=== PATIENT | female | born 1935 ===

== ENCOUNTER 2017-06-09 14:08 | Inpatient (IN) | payer MEDICARE, MEDICAID ==
[2017-06-09] MEDS ORDERED: Sodium Chloride 0.9% 1,000 ML IV STA ×2 (14:31→17:29)
--- NOTE | 2017-06-09 14:37 | C.PDOC ---
History Of Present Illness 81-year-old female, presents to the emergency department accompanied by son with complaints of shaking, that started last night. Son reports increased anxiety, states patient gets anxious easily, but is not diagnosed. Patient denies pain, current shortness of breath, cough, abdominal pain, vomiting, diarrhea, constipation, dysuria, or any other associated symptoms. No other complaints at this time. Time Seen by Provider: 06/09/17 14:10 Chief Complaint (Nursing): Anxiety History Per: Patient History/Exam Limitations: no limitations Onset/Duration Of Symptoms: Days Past Medical History Reviewed: Historical Data, Nursing Documentation, Vital Signs Vital Signs: Last Vital Signs Temp 98.8 F 06/09/17 17:41 Pulse 76 06/09/17 17:41 Resp 18 06/09/17 17:41 BP 105/49 L 06/09/17 17:41 Pulse Ox 97 06/09/17 17:41 - Medical History PMH: Anxiety, Hyperlipidemia Surgical History: Cholecystectomy Family History: States: No Known Family Hx - Social History Hx Alcohol Use: No Hx Substance Use: No - Immunization History Hx Tetanus Toxoid Vaccination: No Hx Influenza Vaccination: No Hx Pneumococcal Vaccination: No Review Of Systems Except As Marked, All Systems Reviewed And Found Negative. Constitutional: Positive for: Chills (shaking.). Negative for: Fever Cardiovascular: Negative for: Chest Pain Respiratory: Negative for: Shortness of Breath Musculoskeletal: Negative for: Back Pain Neurological: Negative for: Headache Physical Exam - Physical Exam Additional Physical Exam Comments: Constitutional: No acute distress. Head: Normocephalic. Atraumatic. Eyes: PERRL. ENT: Moist mucous membranes. Neck: Supple. Cardiovascular: Regular rate. Radial pulses 2+ bilaterally. Tachycardic Chest: No tenderness. Respiratory: Clear to auscultation bilaterally. GI: Soft. Nontender. Nondistended. Back: No CVA tenderness. Musculoskeletal: No tenderness or swelling of extremities. Skin: No rashes. Warm to touch. Neurologic: Alert, no focal deficit. ED Course And Treatment - Laboratory Results Result Diagrams: 06/09/17 14:38 06/09/17 14:38 ECG: Interpreted By Me, Viewed By Me ECG Rhythm: Atrial Fibrillation, R BBB ECG Interpretation: No Acute Changes Rate From EC O2 Sat by Pulse Oximetry: 91 Medical Decision Making Medical Decision Making: Patients vital signs are consistent with sepsis. Will administer Acetaminophen, IVF bolus, and evaluate for source of infection. Started on heparin for new onset atrial fibrillation. Dr. Burgess consulted for cardiology. Cefepime initiated for UTI sepsis. Dr. Lozano consulted for ID. CXR no acute disease. Vital signs much improved. 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 Disposition Discussed With Dr.: Luis Mohan Doctor Will See Patient In The: Hospital - Disposition Disposition: HOSPITALIZED Disposition Time: 17:30 Condition: GUARDED - POA Core Measure Indicators: Code Sepsis - Clinical Impression Clinical Impression: UTI (urinary tract infection), Sepsis, New onset atrial fibrillation - Scribe Statement The provider has reviewed the documentation as recorded by the Scribe (Arlen Pickett) All medical record entries made by the Scribe were at my direction and personally dictated by me. I have reviewed the chart and agree that the record accurately reflects my personal performance of the history, physical exam, medical decision making, and the department course for this patient. I have also personally directed, reviewed, and agree with the discharge instructions and disposition.
[2017-06-09] MEDS ORDERED: Sodium Chloride 0.9% 1,000 ML ONE (14:38)
[2017-06-09 14:41] LABS: BASO % 0.2 % (0.0-2.0); HEMATOCRIT 43.3 % (34.0-47.0); LYMPH # 0.6 K/uL (1.0-4.3); LYMPH % 7.1 % (20.0-40.0); MEAN CELL VOLUME 86.8 fL (81.0-99.0); MEAN CORPUSCULAR HEMOGLOBIN 29.6 pg (27.0-31.0); MEAN CORPUSCULAR HGB CONC 34.1 g/dL (33.0-37.0); MEAN PLATELET VOLUME 9.5 fL (7.2-11.7); MONO # 0.1 K/uL (0.0-0.8); MONO % 1.4 % (0.0-10.0); RED CELL DISTRIBUTION WIDTH 13.5 % (11.5-14.5); WHITE BLOOD COUNT 8.5 K/uL (4.8-10.8)
[2017-06-09 14:43] LABS: VENOUS BLOOD GAS BASE EXCESS -0.3 mmol/L (0.0-2.0); VENOUS BLOOD GAS PCO2 32 mmHg (40-60); VENOUS BLOOD PH 7.46 (7.32-7.43)
[2017-06-09 14:46] LABS: PLATELET COUNT 129 K/uL (130-400)
[2017-06-09 14:49] LABS: CHLORIDE 98 mmol/L (98-107); POTASSIUM 4.1 mmol/L (3.6-5.2); SODIUM 136 mmol/L (132-148)
[2017-06-09 14:51] LABS: BILIRUBIN,TOTAL 2.5 mg/dL (0.2-1.3); GFR AFRICAN-AMERICAN > 60
[2017-06-09 14:52] LABS: ALB/GLOB RATIO 1.1 (1.0-2.1); ALKALINE PHOSPHATASE 96 U/L (38-126); ALT/SGPT 42 U/L (9-52); AST/SGOT 39 U/L (14-36); BLOOD UREA NITROGEN 18 mg/dL (7-17); CALCIUM 9.1 mg/dl (8.6-10.4); CARBON DIOXIDE 20 mmol/L (22-30); GLUCOSE,RANDOM 183 mg/dL (65-105); PHOSPHOROUS 3.2 mg/dL (2.5-4.5); TOTAL PROTEIN 7.2 g/dL (6.3-8.3)
[2017-06-09 14:56] LABS: INR 1.1
--- NOTE | 2017-06-09 15:14 | RAD ---
HISTORY: Sepsis Patient COMPARISON: No prior. FINDINGS: LUNGS: No active pulmonary disease. PLEURA: No significant pleural effusion identified, no pneumothorax apparent. CARDIOVASCULAR: Prominent cardiac silhouette is appreciated. Cardiomegaly is not excluded in this portable chest radiograph. No pulmonary vascular derangement however. OSSEOUS STRUCTURES: No significant abnormalities. VISUALIZED UPPER ABDOMEN: Normal. OTHER FINDINGS: None. IMPRESSION: Prominent cardiac silhouette. No acute infiltrate pleural effusion or pneumothorax identified.
[2017-06-09] MEDS ORDERED: Magnesium Sulfate 1 gm in D5W 1 GM/100 ML BAG IVPB ONE ×2 (15:17→16:03)
[2017-06-09 15:31] LABS: NEUTROPHIL 84 % (50-75); TOTAL CELLS COUNTED 100
[2017-06-09 15:38] LABS: LARGE PLATELETS PRESENT
[2017-06-09] MEDS ORDERED: Cefepime IV 2 gm in Dextrose 2 GM/100 ML BAG IVPB STA (15:44)
[2017-06-09 17:28] LABS: RBC URINE 3 /hpf (0-3); URINE BACTERIA MANY (<OCC); URINE BILIRUBIN NEGATIVE (NEGATIVE); URINE BLOOD 2+ (NEGATIVE); URINE COLOR Amber (YELLOW); URINE GLUCOSE (UA) NORMAL (Normal); URINE KETONE NEGATIVE (NEGATIVE); URINE LEUKOCYTE ESTERASE 3+ Leu/uL (Negative); URINE PROTEIN 2+ mg/dL (NEGATIVE); URINE UROBILINOGEN NORMAL mg/dL (0.2-1.0); WBC URINE 324 /hpf (0-5)
[2017-06-09] MEDS ORDERED: Heparin25000 units/250ml 1/2NS 25,000 UNITS/250 ML BAG IV ONE (17:38)
[2017-06-09 18:16] LABS: VENOUS BLOOD GAS BASE EXCESS -2.2 mmol/L (0.0-2.0); VENOUS BLOOD GAS PCO2 37 mmHg (40-60); VENOUS BLOOD PH 7.39 (7.32-7.43)
[2017-06-09] MEDS: Heparin25000 units/250ml 1/2NS 25,000 UNITS/250 ML BAG IV PRN (18:37)
--- NOTE | 2017-06-09 19:51 | CP.PCM.HP ---
Present on Admission - Present on Admission Any Indicators Present on Admission: No Past Patient History - Infectious Disease Hx of Infectious Diseases: None - Past Social History Smoking Status: Never Smoked - ENDOCRINE/METABOLIC Hx Diabetes Mellitus Type 2: Yes - GENITOURINARY/GYNECOLOGICAL Hx Urinary Tract Infection: Yes - PSYCHIATRIC Hx Anxiety: Yes Hx Substance Use: No - SURGICAL HISTORY Hx Cholecystectomy: Yes - ANESTHESIA Hx Anesthesia: Yes Hx Anesthesia Reactions: No Meds Allergies/Adverse Reactions: Allergies Allergy/AdvReac Type Severity Reaction Status Date / Time No Known Allergies Allergy Verified 06/09/17 14:15 Results - Vital Signs Recent Vital Signs: Last Vital Signs Temp 98.2 F 06/09/17 19:37 Pulse 66 06/09/17 19:37 Resp 20 06/09/17 19:37 BP 109/54 L 06/09/17 19:37 Pulse Ox 95 06/09/17 19:37 - Labs Result Diagrams: 06/09/17 14:38 06/09/17 14:38 Labs: Laboratory Results - last 24 hr 06/09/17 18:13 pO2 67 H VBG pH 7.39 VBG pCO2 37 L VBG HCO3 23.1 VBG Total CO2 23.5 VBG O2 Sat (Calc) 96.3 H VBG Base Excess -2.2 L VBG Potassium 3.0 L Sodium 136.0 Chloride 107.0 Glucose 183 H Lactate 1.5 Venous Blood Potassium 3.0 L
--- NOTE | 2017-06-09 21:59 | CP.PCM.CON ---
History of Present Illness - History of Present Illness History of Present Illness: Reason For Consultation: a Fib History Of Present Illness 81-year-old female, presents to the emergency department accompanied by son with complaints of shaking, that started last night. Son reports increased anxiety, states patient gets anxious easily, but is not diagnosed. Patient denies pain, current shortness of breath, cough, abdominal pain, vomiting, diarrhea, constipation, dysuria, or any other associated symptoms. No other complaints at this time. Past Medical History Reviewed: Historical Data, Nursing Documentation, Vital Signs - Medical History PMH: Anxiety, Hyperlipidemia Surgical History: Cholecystectomy Family History: States: No Known Family Hx - Social History Hx Alcohol Use: No Hx Substance Use: No - Immunization History Hx Tetanus Toxoid Vaccination: No Hx Influenza Vaccination: No Hx Pneumococcal Vaccination: No Review Of Systems Except As Marked, All Systems Reviewed And Found Negative. Constitutional: Positive for: Chills (shaking.). Negative for: Fever Cardiovascular: Negative for: Chest Pain Respiratory: Negative for: Shortness of Breath Musculoskeletal: Negative for: Back Pain Neurological: Negative for: Headache Physical Exam - Physical Exam Additional Physical Exam Comments: Constitutional: No acute distress. Head: Normocephalic. Atraumatic. Eyes: PERRL. ENT: Moist mucous membranes. Neck: Supple. Cardiovascular: Regular rate. Radial pulses 2+ bilaterally. Tachycardic Chest: No tenderness. Respiratory: Clear to auscultation bilaterally. GI: Soft. Nontender. Nondistended. Back: No CVA tenderness. Musculoskeletal: No tenderness or swelling of extremities. Skin: No rashes. Warm to touch. Neurologic: Alert, no focal deficit. Past Patient History - Infectious Disease Hx of Infectious Diseases: None - Past Medical History & Family History Past Medical History?: Yes - Past Social History Smoking Status: Never Smoked - CARDIAC Hx Cardiac Disorders: No - PULMONARY Hx Respiratory Disorders: No - NEUROLOGICAL Hx Neurological Disorder: No - HEENT Hx HEENT Problems: No - RENAL Hx Chronic Kidney Disease: No - ENDOCRINE/METABOLIC Hx Diabetes Mellitus Type 2: Yes - HEMATOLOGICAL/ONCOLOGICAL Hx Blood Disorders: No - INTEGUMENTARY Hx Dermatological Problems: No - MUSCULOSKELETAL/RHEUMATOLOGICAL Hx Musculoskeletal Disorders: No Hx Falls: No - GASTROINTESTINAL Hx Gastrointestinal Disorders: No - GENITOURINARY/GYNECOLOGICAL Hx Urinary Tract Infection: Yes - PSYCHIATRIC Hx Anxiety: Yes Hx Substance Use: No - SURGICAL HISTORY Hx Cholecystectomy: Yes - ANESTHESIA Hx Anesthesia: Yes Hx Anesthesia Reactions: No Meds Allergies/Adverse Reactions: Allergies Allergy/AdvReac Type Severity Reaction Status Date / Time No Known Allergies Allergy Verified 06/09/17 14:15 - Medications Medications: Current Medications Enoxaparin Sodium (Lovenox) 40 mg SC DAILY [facility] Home Med (Invokana) 100 mg PO BID [facility] Heparin Sodium/Sodium Chloride (Heparin 22237 Units/250ml 1/2 Normal Saline) 25 ,000 units in 250 mls @ 7.62 mls/hr IV .Q24H PRN; 12 UNITS/KG/HR PRN Reason: Protocol Last Admin: 06/09/17 18:37 Dose: 12 units/kg/hr, 7.62 mls/hr Cefepime HCl (Maxipime Iv 1 Gm Premix) 1 gm in 50 mls @ 100 mls/hr IVPB Q12H [facility] Pantoprazole Sodium (Protonix Ec Tab) 40 mg PO DAILY [facility] Results - Vital Signs Recent Vital Signs: Last Vital Signs Temp 98.2 F 06/09/17 19:37 Pulse 66 06/09/17 19:37 Resp 20 06/09/17 19:37 BP 109/54 L 06/09/17 19:37 Pulse Ox 95 06/09/17 19:37 - Labs Result Diagrams: 06/10/17 07:51 06/10/17 07:51 Labs: Laboratory Results - last 24 hr 06/09/17 06/09/17 18:13 20:56 pO2 67 H VBG pH 7.39 VBG pCO2 37 L VBG HCO3 23.1 VBG Total CO2 23.5 VBG O2 Sat (Calc) 96.3 H VBG Base Excess -2.2 L VBG Potassium 3.0 L Sodium 136.0 Chloride 107.0 Glucose 183 H Lactate 1.5 POC Glucose (mg/dL) 219 H Venous Blood Potassium 3.0 L Assessment & Plan - Assessment and Plan (Free Text) Assessment: 1. Urossepsis: On nantibiotics 2. A Fib: On IV Heparin Check ECHO/TSH/Trops
[2017-06-09] MEDS: Cefepime IV 1 gm in Dextrose 1 GM/50 ML BAG IVPB SCH (22:00)
[2017-06-10] MEDS: (Novolog) Insulin Aspart, Recombinant 100 u/ml 10 ml vial SC SCH ×4 (07:51→21:59)
[2017-06-10 08:12] LABS: HEMATOCRIT 38.2 % (34.0-47.0); MEAN CELL VOLUME 86.9 fL (81.0-99.0); MEAN CORPUSCULAR HEMOGLOBIN 29.4 pg (27.0-31.0); MEAN CORPUSCULAR HGB CONC 33.8 g/dL (33.0-37.0); RED CELL DISTRIBUTION WIDTH 13.2 % (11.5-14.5); WHITE BLOOD COUNT 11.6 K/uL (4.8-10.8)
[2017-06-10 08:26] LABS: CHLORIDE 105 mmol/L (98-107); POTASSIUM 3.7 mmol/L (3.6-5.2); SODIUM 140 mmol/L (132-148)
[2017-06-10 08:28] LABS: CARBON DIOXIDE 25 mmol/L (22-30); GFR AFRICAN-AMERICAN > 60
[2017-06-10 08:29] LABS: BLOOD UREA NITROGEN 16 mg/dL (7-17); CALCIUM 8.4 mg/dl (8.6-10.4); GLUCOSE,RANDOM 161 mg/dL (65-105)
[2017-06-10] MEDS: Cefepime IV 1 gm in Dextrose 1 GM/50 ML BAG IVPB SCH ×2 (08:37→20:07)
[2017-06-10] MEDS: Pantoprazole 40 mg EC Tab PO SCH (09:36)
[2017-06-10] MEDS ORDERED: Enoxaparin 40 mg Syringe SC SCH (10:00)
[2017-06-10] MEDS ORDERED: INVOKANA 100 MG PO SCH (10:00)
--- NOTE | 2017-06-10 16:22 | CP.PCM.PN ---
Subjective - Date & Time of Evaluation Date of Evaluation: 06/10/17 Time of Evaluation: 01:40 - Subjective Subjective: clinically same Objective - Vital Signs/Intake and Output Vital Signs (last 24 hours): Temp Pulse Resp BP Pulse Ox 97.7 F 69 18 125/66 95 06/10/17 07:15 06/10/17 10:00 06/10/17 07:15 06/10/17 07:15 06/10/17 07:15 Intake and Output: 06/10/17 06/10/17 06:59 18:59 Intake Total 350.96 456 Output Total 825 Balance -474.04 456 - Medications Medications: Current Medications Clonazepam (Klonopin) 0.5 mg PO BID PRN PRN Reason: Anxiety Home Med (Invokana) 100 mg PO BID [facility] Last Admin: 06/10/17 10:55 Dose: Not Given Heparin Sodium/Sodium Chloride (Heparin 83937 Units/250ml 1/2 Normal Saline) 25 ,000 units in 250 mls @ 7.62 mls/hr IV .Q24H PRN; 12 UNITS/KG/HR PRN Reason: Protocol Last Admin: 06/09/17 18:37 Dose: 12 units/kg/hr, 7.62 mls/hr Cefepime HCl (Maxipime Iv 1 Gm Premix) 1 gm in 50 mls @ 100 mls/hr IVPB Q12H [facility] Last Admin: 06/10/17 08:37 Dose: 100 mls/hr Insulin Aspart (Novolog) 0 unit SC ACHS [facility] PRN Reason: Protocol Last Admin: 06/10/17 12:46 Dose: 2 unit Metformin HCl (Glucophage) 1,000 mg PO BIDCC [facility] Last Admin: 06/10/17 08:37 Dose: 1,000 mg Pantoprazole Sodium (Protonix Ec Tab) 40 mg PO DAILY [facility] Last Admin: 06/10/17 09:36 Dose: 40 mg Sitagliptin Phosphate (Januvia) 50 mg PO BID [facility] Last Admin: 06/10/17 09:36 Dose: 50 mg Tramadol HCl (Ultram) 50 mg PO Q6 PRN PRN Reason: Pain, moderate (4-7) - Labs Labs: 06/10/17 07:51 06/10/17 07:51 PT 12.7 SECONDS (9.7-12.2) H 06/09/17 14:38 INR 1.1 06/09/17 14:38 APTT 58 SECONDS (21-34) H 06/10/17 07:51 - Constitutional Appears: Well - Head Exam Head Exam: ATRAUMATIC, NORMAL INSPECTION, NORMOCEPHALIC - Eye Exam Eye Exam: EOMI, Normal appearance, PERRL - ENT Exam ENT Exam: Mucous Membranes Moist, Normal Exam - Neck Exam Neck Exam: Full ROM, Normal Inspection. absent: Lymphadenopathy - Respiratory Exam Respiratory Exam: Decreased Breath Sounds - Cardiovascular Exam Cardiovascular Exam: REGULAR RHYTHM, +S1, +S2. absent: Murmur - GI/Abdominal Exam GI & Abdominal Exam: Diminished Bowel Sounds - Rectal Exam Rectal Exam: Deferred Assessment and Plan (1) New onset atrial fibrillation Status: Acute (2) Sepsis Status: Acute (3) UTI (urinary tract infection) Status: Acute
--- NOTE | 2017-06-10 17:04 | CP.PCM.CON ---
History of Present Illness - History of Present Illness History of Present Illness: 81-year-old female, presents to the emergency department accompanied by son with complaints of shaking, that started last night. Son reports increased anxiety, states patient gets anxious easily, but is not diagnosed. Patient denies pain, current shortness of breath, cough, abdominal pain, vomiting, diarrhea, constipation, dysuria, or any other associated symptoms. No other complaints at this time. referred for id eval / antibiotic management - Medical History PMH: Anxiety, Hyperlipidemia Surgical History: Cholecystectomy Family History: States: No Known Family Hx Review of Systems - Constitutional Constitutional: As Per HPI, Chills, Fever, Malaise - EENT Eyes: absent: As Per HPI, Blind Spots, Blurred Vision, Change in Vision, Decreased Night Vision, Diplopia, Discharge, Dry Eye, Exophthalmos, Floaters, Irritation, Itchy Eyes, Loss of Peripheral Vision, Pain, Photophobia, Requires Corrective Lenses, Sees Flashes, Spots in Vision, Tunnel Vision, Other Visual Disturbances, Loss of Vision, Other Ears: absent: As Per HPI, Decreased Hearing, Ear Discharge, Ear Pain, Tinnitus, Abnormal Hearing, Disequilibrium, Dizziness, Other Nose/Mouth/Throat: absent: As Per HPI, Epistaxis, Nasal Congestion, Nasal Discharge, Nasal Obstruction, Nasal Trauma, Nose Pain, Post Nasal Drip, Sinus Pain, Sinus Pressure, Bleeding Gums, Change in Voice, Dental Pain, Dry Mouth, Dysphagia, Halitosis, Hoarsness, Lip Swelling, Mouth Lesions, Mouth Pain, Odynophagia, Sore Throat, Throat Swelling, Tongue Swelling, Facial Pain, Neck Pain, Neck Mass, Other - Breasts Breasts: absent: As Per HPI, Change in Shape, Mass, Pain, Nipple Discharge, Nipple Inversion, Skin Changes, Swelling, Other - Cardiovascular Cardiovascular: absent: As Per HPI, Acrocyanosis, Chest Pain, Chest Pain at Rest , Chest Pain with Activity, Claudication, Diaphoresis, Dyspnea, Dyspnea on Exertion, Edema, Irregular Heart Rhythm, Pain Radiating to Arm/Neck/Jaw, Leg Edema, Leg Ulcers, Lightheadedness, Orthopnea, Palpitations, Paroxysmal Nocturnal Dyspnea, Pedal Edema, Radiating Pain, Rapid Heart Rate, Slow Heart Rate, Syncope, Other - Respiratory Respiratory: absent: As Per HPI, Cough, Dyspnea, Hemoptysis, Dyspnea on Exertion , Wheezing, Snoring, Stridor, Pain on Inspiration, Chest Congestion, Excessive Mucous Production, Change in Mucous Color, Pain with Coughing, Other - Gastrointestinal Gastrointestinal: absent: As Per HPI, Abdominal Pain, Belching, Bloating, Change in Bowel Habits, Change in Stool Character, Coffee Ground Emesis, Constipation, Cramping, Diarrhea, Dyspepsia, Dysphagia, Early Satiety, Excessive Flatus, Fecal Incontinence, Heartburn, Hematemesis, Hematochezia, Loose Stools, Melena, Nausea, Odynophagia, Temesmus, Vomiting, Other - Genitourinary Genitourinary: As Per HPI - Reproductive: Female Reproductive:Female: absent: As Per HPI, Amenorrhea, Amenorrhea/ Control, Currently Menstual, Cycle <21 Days, Cycle >35 Days, Cycle Variable, Menses 1-7 Days, Menses >/= 8 Days, Menses Variable, Cycle > 4 Weeks Between, No Menses for 6 Months, Heavy Menses, Light Menses, Normal Menses, Spotting Between Cycles , S/P Hysterectomy, Menopausal, Post Menopausal, Premenarche, Abnormal Vaginal Bleeding, Dysmenorrhea, Dyspareunia, Genital Lesions, Genital Pruritis, Pelvic Pain, Prolapse Symptoms, Sexual Dysfunction, Vaginal Discharge, Vaginal Dryness , Vaginal Odor, Vaginal Pruritis, Other - Menstruation Menstruation: absent: As Per HPI, Amenorrhea, Amenorrhea/ Control, Currently Menstual, Cycle <21 Days, Cycle >35 Days, Cycle Variable, Menses 1-7 Days, Menses >/= 8 Days, Menses Variable, Cycle > 4 Weeks Between, No Menses for 6 Months, Heavy Menses, Light Menses, Normal Menses, Spotting Between Cycles , S/P Hysterectomy, Menopausal, Post Menopausal, Premenarche, Abnormal Vaginal Bleeding, Dysmenorrhea, Other - Musculoskeletal Musculoskeletal: absent: As Per HPI, Abnormal Gait, Arthralgias, Atrophy, Back Pain, Deformity, Joint Swelling, Limited Range of Motion, Loss of Height, Muscle Cramps, Muscle Weakness, Myalgias, Neck Pain, Numbness, Radiating Pain into Limb, Stiffness, Tingling, Other - Integumentary Integumentary: absent: As Per HPI, Acne, Alopecia, Bleeding Lesions, Change in Hair, Change in Nails, Change in Pigmentation, Changing Lesions, Dry Skin, Erythema, Furuncle, Hirsutism, Lesions, New Lesions, Non-Healing Lesions, Photosensitivity, Pruritus, Rash, Skin Pain, Skin Ulcer, Sores, Striae, Swelling , Unusual Bruising, Wounds, Jaundice, Other - Neurological Neurological: absent: As Per HPI, Abnormal Gait, Abnormal Hearing, Abnormal Movements, Abnormal Speech, Behavioral Changes, Burning Sensations, Confusion, Convulsions, Disequilibrium, Dizziness, Numbness, Focal Weakness, Frequent Falls , Headaches, Lack of Coordination, Loss of Vision, Memory Loss, Paresthesias, Radicular Pain, Restless Legs, Sensory Deficit, Syncope, Tingling, Tremor, Vertigo, Weakness, Other Visual Disturbances, Other - Psychiatric Psychiatric: absent: As Per HPI, Abnormal Sleep Pattern, Anhedonia, Anxiety, Auditory Hallucinations, Behavioral Changes, Change in Appetite, Change in Libido, Confusion, Depression, Difficulty Concentrating, Hallucinations, Homicidal Ideation, Hopelessness, Irritability, Memory Loss, Mood Swings, Panic Attacks, Paranoia, Suicidal Ideation, Visual Hallucinations, Tactile Hallucinations, Other - Endocrine Endocrine: absent: As Per HPI, Change in Body Appearance, Change in Libido, Cold Intolorance, Deepening of Voice, Excessive Sweating, Fatigue, Flushing, Heat Intolorance, Increase in Ring/Shoe/Hat Size, Palpitations, Polydipsia, Polyphagia, Polyuria, Other - Hematologic/Lymphatic Hematologic: absent: As Per HPI, Easy Bleeding, Easy Bruising, Lymphadenopathy, Other Past Patient History - Infectious Disease Hx of Infectious Diseases: None - Past Medical History & Family History Past Medical History?: Yes - Past Social History Smoking Status: Never Smoked - CARDIAC Hx Cardiac Disorders: No - PULMONARY Hx Respiratory Disorders: No - NEUROLOGICAL Hx Neurological Disorder: No - HEENT Hx HEENT Problems: No - RENAL Hx Chronic Kidney Disease: No - ENDOCRINE/METABOLIC Hx Diabetes Mellitus Type 2: Yes - HEMATOLOGICAL/ONCOLOGICAL Hx Blood Disorders: No - INTEGUMENTARY Hx Dermatological Problems: No - MUSCULOSKELETAL/RHEUMATOLOGICAL Hx Musculoskeletal Disorders: No Hx Falls: No - GASTROINTESTINAL Hx Gastrointestinal Disorders: No - GENITOURINARY/GYNECOLOGICAL Hx Urinary Tract Infection: Yes - PSYCHIATRIC Hx Anxiety: Yes Hx Substance Use: No - SURGICAL HISTORY Hx Cholecystectomy: Yes - ANESTHESIA Hx Anesthesia: Yes Hx Anesthesia Reactions: No Meds Allergies/Adverse Reactions: Allergies Allergy/AdvReac Type Severity Reaction Status Date / Time No Known Allergies Allergy Verified 06/09/17 14:15 - Medications Medications: Current Medications Clonazepam (Klonopin) 0.5 mg PO BID PRN PRN Reason: Anxiety Home Med (Invokana) 100 mg PO BID [facility] Last Admin: 06/10/17 10:55 Dose: Not Given Heparin Sodium/Sodium Chloride (Heparin 49708 Units/250ml 1/2 Normal Saline) 25 ,000 units in 250 mls @ 7.62 mls/hr IV .Q24H PRN; 12 UNITS/KG/HR PRN Reason: Protocol Last Admin: 06/09/17 18:37 Dose: 12 units/kg/hr, 7.62 mls/hr Cefepime HCl (Maxipime Iv 1 Gm Premix) 1 gm in 50 mls @ 100 mls/hr IVPB Q12H [facility] Last Admin: 06/10/17 08:37 Dose: 100 mls/hr Insulin Aspart (Novolog) 0 unit SC ACHS [facility] PRN Reason: Protocol Last Admin: 06/10/17 12:46 Dose: 2 unit [facility] Last Admin: 06/10/17 08:37 Dose: 1,000 mg Pantoprazole Sodium (Protonix Ec Tab) 40 mg PO DAILY [facility] Last Admin: 06/10/17 09:36 Dose: 40 mg Sitagliptin Phosphate (Januvia) 50 mg PO BID [facility] Last Admin: 06/10/17 09:36 Dose: 50 mg Tramadol HCl (Ultram) 50 mg PO Q6 PRN PRN Reason: Pain, moderate (4-7) Last Admin: 06/10/17 16:32 Dose: 50 mg Physical Exam - Constitutional Appears: Toxic, Cachectic, Chronically Ill - Head Exam Head Exam: ATRAUMATIC, NORMAL INSPECTION, NORMOCEPHALIC - Eye Exam Eye Exam: EOMI, PERRL. absent: Scleral icterus - ENT Exam ENT Exam: Mucous Membranes Dry, Normal External Ear Exam - Neck Exam Neck exam: Negative for: Thyromegaly - Respiratory Exam Respiratory Exam: Decreased Breath Sounds, Clear to Auscultation Bilateral - Cardiovascular Exam Cardiovascular Exam: REGULAR RHYTHM, +S1, +S2 - GI/Abdominal Exam GI & Abdominal Exam: Diminished Bowel Sounds, Soft. absent: Tenderness - Rectal Exam Rectal Exam: Deferred - Exam Exam: NORMAL INSPECTION - Extremities Exam Extremities exam: Positive for: pedal pulses present. Negative for: pedal edema - Back Exam Back exam: absent: CVA tenderness (L), CVA tenderness (R), paraspinal tenderness - Neurological Exam Neurological exam: Alert, CN II-XII Intact, Oriented x3, Reflexes Normal - Psychiatric Exam Psychiatric exam: Normal Mood - Skin Skin Exam: Dry Results - Vital Signs Recent Vital Signs: Last Vital Signs Temp 97.7 F 06/10/17 07:15 Pulse 69 06/10/17 10:00 Resp 18 06/10/17 07:15 BP 125/66 06/10/17 07:15 Pulse Ox 95 06/10/17 07:15 - Labs Result Diagrams: 06/10/17 07:51 06/10/17 07:51 Labs: Laboratory Results - last 24 hr 06/09/17 06/09/17 06/10/17 18:13 20:56 01:15 WBC RBC Hgb Hct MCV MCH MCHC RDW Plt Count MPV Differential Comment APTT 60 H D pO2 67 H VBG pH 7.39 VBG pCO2 37 L VBG HCO3 23.1 VBG Total CO2 23.5 VBG O2 Sat (Calc) 96.3 H VBG Base Excess -2.2 L VBG Potassium 3.0 L Sodium 136.0 Chloride 107.0 Glucose 183 H Lactate 1.5 Potassium Carbon Dioxide Anion Gap BUN Creatinine Est GFR ( Amer) Est GFR (Non-Af Amer) POC Glucose (mg/dL) 219 H Random Glucose Calcium Total Creatine Kinase CK-MB (Mass) Troponin I Venous Blood Potassium 3.0 L 06/10/17 06/10/17 06/10/17 06:14 07:51 07:51 WBC 11.6 H RBC 4.40 Hgb 12.9 Hct 38.2 MCV 86.9 MCH 29.4 MCHC 33.8 RDW 13.2 Plt Count 94 L D MPV 10.0 Differential Comment APTT pO2 VBG pH VBG pCO2 VBG HCO3 VBG Total CO2 VBG O2 Sat (Calc) VBG Base Excess VBG Potassium Sodium 140 Chloride 105 Glucose Lactate Potassium 3.7 Carbon Dioxide 25 Anion Gap 13 BUN 16 Creatinine 0.7 Est GFR ( Amer) > 60 Est GFR (Non-Af Amer) > 60 POC Glucose (mg/dL) 148 H Random Glucose 161 H Calcium 8.4 L Total Creatine Kinase 224 H CK-MB (Mass) 1.54 Troponin I 0.0190 Venous Blood Potassium 06/10/17 06/10/17 06/10/17 07:51 11:24 16:34 WBC RBC Hgb Hct MCV MCH MCHC RDW Plt Count MPV Differential Comment APTT 58 H pO2 VBG pH VBG pCO2 VBG HCO3 VBG Total CO2 VBG O2 Sat (Calc) VBG Base Excess VBG Potassium Sodium Chloride Glucose Lactate Potassium Carbon Dioxide Anion Gap BUN Creatinine Est GFR ( Amer) Est GFR (Non-Af Amer) POC Glucose (mg/dL) 236 H 180 H Random Glucose Calcium Total Creatine Kinase CK-MB (Mass) Troponin I Venous Blood Potassium Assessment & Plan (1) New onset atrial fibrillation Status: Acute (2) Sepsis Status: Acute (3) UTI (urinary tract infection) Status: Acute - Assessment and Plan (Free Text) Assessment: [id number] empiric iv antibiotics imaging and eval recommended
--- NOTE | 2017-06-10 20:34 | CP.PCM.PN ---
Subjective - Date & Time of Evaluation Date of Evaluation: 06/10/17 Time of Evaluation: 17:10 - Subjective Subjective: Patient seen and evaluated Denies chest pain and dyspnea Objective - Vital Signs/Intake and Output Vital Signs (last 24 hours): Temp Pulse Resp BP Pulse Ox 97.3 F L 80 20 161/61 H 95 06/10/17 15:13 06/10/17 18:00 06/10/17 15:13 06/10/17 15:13 06/10/17 15:13 Intake and Output: 06/10/17 06/11/17 18:59 06:59 Intake Total 456 Balance 456 - Medications Medications: Current Medications Clonazepam (Klonopin) 0.5 mg PO BID PRN PRN Reason: Anxiety Home Med (Invokana) 100 mg PO BID [facility] Last Admin: 06/10/17 10:55 Dose: Not Given Heparin Sodium/Sodium Chloride (Heparin 12342 Units/250ml 1/2 Normal Saline) 25 ,000 units in 250 mls @ 7.62 mls/hr IV .Q24H PRN; 12 UNITS/KG/HR PRN Reason: Protocol Last Admin: 06/09/17 18:37 Dose: 12 units/kg/hr, 7.62 mls/hr Cefepime HCl (Maxipime Iv 1 Gm Premix) 1 gm in 50 mls @ 100 mls/hr IVPB Q12H [facility] Last Admin: 06/10/17 20:07 Dose: 100 mls/hr Insulin Aspart (Novolog) 0 unit SC ACHS [facility] PRN Reason: Protocol Last Admin: 06/10/17 17:26 Dose: 1 unit Metformin HCl (Glucophage) 1,000 mg PO BIDCC [facility] Last Admin: 06/10/17 17:26 Dose: 1,000 mg Pantoprazole Sodium (Protonix Ec Tab) 40 mg PO DAILY [facility] Last Admin: 06/10/17 09:36 Dose: 40 mg Sitagliptin Phosphate (Januvia) 50 mg PO BID [facility] Last Admin: 06/10/17 17:26 Dose: 50 mg Tramadol HCl (Ultram) 50 mg PO Q6 PRN PRN Reason: Pain, moderate (4-7) Last Admin: 06/10/17 16:32 Dose: 50 mg - Labs Labs: 06/10/17 07:51 06/10/17 07:51 PT 12.7 SECONDS (9.7-12.2) H 06/09/17 14:38 INR 1.1 06/09/17 14:38 APTT 58 SECONDS (21-34) H 06/10/17 07:51 - Head Exam Head Exam: ATRAUMATIC, NORMAL INSPECTION - Eye Exam Eye Exam: EOMI, Normal appearance, PERRL - ENT Exam ENT Exam: Mucous Membranes Moist - Neck Exam Neck Exam: Full ROM, Normal Inspection - Respiratory Exam Respiratory Exam: Clear to Ausculation Bilateral, NORMAL BREATHING PATTERN - Cardiovascular Exam Cardiovascular Exam: Irregular Rhythm, +S1, +S2 - GI/Abdominal Exam GI & Abdominal Exam: Soft, Normal Bowel Sounds - Extremities Exam Extremities Exam: Full ROM - Neurological Exam Neurological Exam: Alert, Awake, CN II-XII Intact, Oriented x3 - Psychiatric Exam Psychiatric exam: Normal Mood - Skin Skin Exam: Warm Assessment and Plan - Assessment and Plan (Free Text) Plan: 1. A Fib: Rate controlled on IV Heparin. Check ECHO 2. HTN 3. Urosepsis
[2017-06-11] MEDS: Heparin25000 units/250ml 1/2NS 25,000 UNITS/250 ML BAG IV PRN ×2 (05:05→09:01)
[2017-06-11 07:29] LABS: BASO % 0.1 % (0.0-2.0); EOS % 0.1 % (0.0-4.0); HEMATOCRIT 37.6 % (34.0-47.0); LYMPH # 1.1 K/uL (1.0-4.3); MEAN CELL VOLUME 86.9 fL (81.0-99.0); MEAN CORPUSCULAR HEMOGLOBIN 29.4 pg (27.0-31.0); MEAN CORPUSCULAR HGB CONC 33.9 g/dL (33.0-37.0); MEAN PLATELET VOLUME 10.3 fL (7.2-11.7); MONO % 10.4 % (0.0-10.0); RED CELL DISTRIBUTION WIDTH 13.3 % (11.5-14.5); WHITE BLOOD COUNT 9.4 K/uL (4.8-10.8)
[2017-06-11] MEDS: Cefepime IV 1 gm in Dextrose 1 GM/50 ML BAG IVPB SCH (08:31)
[2017-06-11] MEDS: (Novolog) Insulin Aspart, Recombinant 100 u/ml 10 ml vial SC SCH ×4 (09:02→21:58)
[2017-06-11] MEDS: Pantoprazole 40 mg EC Tab PO SCH (10:22)
[2017-06-11] MEDS: Meropenem 500 MG in Sodium Chloride 0.9% 100 ML IVPB SCH ×3 (11:52→23:56)
--- NOTE | 2017-06-11 12:18 | CP.PCM.PN ---
Subjective - Date & Time of Evaluation Date of Evaluation: 06/11/17 Time of Evaluation: 09:00 - Subjective Subjective: ESBL POSITIVE MERREM ADDED Objective - Vital Signs/Intake and Output Vital Signs (last 24 hours): Temp Pulse Resp BP Pulse Ox 98.3 F 54 L 20 120/61 96 06/11/17 07:40 06/11/17 08:00 06/11/17 07:40 06/11/17 07:40 06/11/17 07:40 Intake and Output: 06/11/17 06/11/17 06:59 18:59 Intake Total 806 Balance 806 - Medications Medications: Current Medications Acetaminophen (Tylenol 325mg Tab) 650 mg PO Q6 PRN PRN Reason: fever Last Admin: 06/11/17 00:57 Dose: 650 mg Clonazepam (Klonopin) 0.5 mg PO BID PRN PRN Reason: Anxiety Home Med (Invokana) 100 mg PO BID [facility] Last Admin: 06/10/17 10:55 Dose: Not Given Heparin Sodium/Sodium Chloride (Heparin 74676 Units/250ml 1/2 Normal Saline) 25 ,000 units in 250 mls @ 8.89 mls/hr IV .Q24H PRN; 14 UNITS/KG/HR PRN Reason: Protocol Last Admin: 06/11/17 09:01 Dose: 14 units/kg/hr, 8.89 mls/hr Meropenem 500 mg/ Sodium (Chloride) 100 mls @ 100 mls/hr IVPB Q6 [facility] Last Admin: 06/11/17 11:52 Dose: 100 mls/hr Insulin Aspart (Novolog) 0 unit SC ACHS [facility] PRN Reason: Protocol Last Admin: 06/11/17 09:02 Dose: Not Given Metformin HCl (Glucophage) 1,000 mg PO BIDCC [facility] Last Admin: 06/11/17 10:22 Dose: Not Given Pantoprazole Sodium (Protonix Ec Tab) 40 mg PO DAILY [facility] Last Admin: 06/11/17 10:22 Dose: 40 mg Sitagliptin Phosphate (Januvia) 50 mg PO BID [facility] Last Admin: 06/11/17 10:22 Dose: 50 mg Tramadol HCl (Ultram) 50 mg PO Q6 PRN PRN Reason: Pain, moderate (4-7) Last Admin: 06/10/17 16:32 Dose: 50 mg - Labs Labs: 06/11/17 07:15 06/10/17 07:51 PT 12.7 SECONDS (9.7-12.2) H 06/09/17 14:38 INR 1.1 06/09/17 14:38 APTT 44 SECONDS (21-34) H D 06/11/17 07:15 - Constitutional Appears: Non-toxic, Chronically Ill - Head Exam Head Exam: NORMOCEPHALIC - Eye Exam Eye Exam: absent: Scleral icterus - ENT Exam ENT Exam: Mucous Membranes Dry - Neck Exam Neck Exam: absent: Lymphadenopathy - Respiratory Exam Respiratory Exam: Decreased Breath Sounds, Rhonchi - Cardiovascular Exam Cardiovascular Exam: REGULAR RHYTHM, +S1, +S2 - GI/Abdominal Exam GI & Abdominal Exam: Distended, Soft. absent: Tenderness - Rectal Exam Rectal Exam: Deferred - Exam Exam: NORMAL INSPECTION Assessment and Plan (1) New onset atrial fibrillation Status: Acute (2) Sepsis Status: Acute (3) UTI (urinary tract infection) Status: Acute
--- NOTE | 2017-06-11 12:20 | US ---
Limited abdomen/renal ultrasound Indication: Pyelonephritis Comparison: None available Findings: Liver measures approximately 18.7 cm in sagittal dimension. Echogenic liver may be seen in setting of hepatic parenchymal disease or fatty infiltration. The main portal vein appears patent with normal directional flow. There is no evidence of intrahepatic ductal dilatation. The common bile duct appears within normal limits of caliber, measuring 3 mm. Contracted gallbladder limits evaluation. Gallstones and gallbladder sludge. The gallbladder wall appears minimally thickened measuring approximately 4 mm. Negative sonographic Sommer's sign as assessed by the time study statistician. The pancreas was not visualized. The right kidney measures 12.0 x 5.3 x 5.5 cm and is without evidence of stones or hydronephrosis. The left kidney measures 11.6 x 6.0 x 5.7 cm and is without evidence of stones or hydronephrosis. The spleen 10.5 cm. The visualized abdominal aorta appears within normal limits caliber. The visualized IVC appear grossly unremarkable. Impression: Echogenic liver may be seen in setting of hepatic parenchymal disease or fatty infiltration. Gallstones and gallbladder sludge. Gallbladder wall appears minimally thickened measuring approximately 4 mm. Gallbladder is contracted which limits evaluation. Negative sonographic Sommer's sign as assessed by the time study statistician. Please note that pyelonephritis cannot be excluded by sonography alone. Correlate clinically.
--- NOTE | 2017-06-11 12:30 | CARD ---
APPROVED REPORT EKG Measurement Heart [id number] <Conclusion> Atrial fibrillation Right bundle branch block Abnormal ECG
--- NOTE | 2017-06-11 18:59 | CP.PCM.PN ---
Subjective - Date & Time of Evaluation Date of Evaluation: 06/11/17 Time of Evaluation: 13:00 - Subjective Subjective: clinically same Objective - Vital Signs/Intake and Output Vital Signs (last 24 hours): Temp Pulse Resp BP Pulse Ox 98.4 F 64 20 149/64 95 06/11/17 15:00 06/11/17 15:00 06/11/17 15:00 06/11/17 15:00 06/11/17 15:00 Intake and Output: 06/11/17 06/11/17 06:59 18:59 Intake Total 806 Balance 806 - Medications Medications: Current Medications Acetaminophen (Tylenol 325mg Tab) 650 mg PO Q6 PRN PRN Reason: fever Last Admin: 06/11/17 00:57 Dose: 650 mg Clonazepam (Klonopin) 0.5 mg PO BID PRN PRN Reason: Anxiety Home Med (Invokana) 100 mg PO BID [facility] Last Admin: 06/10/17 10:55 Dose: Not Given Heparin Sodium/Sodium Chloride (Heparin 31950 Units/250ml 1/2 Normal Saline) 25 ,000 units in 250 mls @ 8.89 mls/hr IV .Q24H PRN; 14 UNITS/KG/HR PRN Reason: Protocol Last Admin: 06/11/17 09:01 Dose: 14 units/kg/hr, 8.89 mls/hr Meropenem 500 mg/ Sodium (Chloride) 100 mls @ 100 mls/hr IVPB Q6 [facility] Last Admin: 06/11/17 18:42 Dose: 100 mls/hr Insulin Aspart (Novolog) 0 unit SC ACHS [facility] PRN Reason: Protocol Last Admin: 06/11/17 18:50 Dose: 1 unit [facility] ([facility]) [facility] Last Admin: 06/11/17 18:42 Dose: 1,000 mg Pantoprazole Sodium (Protonix Ec Tab) 40 mg PO DAILY [facility] Last Admin: 06/11/17 10:22 Dose: 40 mg Sitagliptin Phosphate (Januvia) 50 mg PO BID [facility] Last Admin: 06/11/17 18:42 Dose: 50 mg Tramadol HCl (Ultram) 50 mg PO Q6 PRN PRN Reason: Pain, moderate (4-7) Last Admin: 06/10/17 16:32 Dose: 50 mg - Labs Labs: 06/11/17 07:15 06/10/17 07:51 PT 12.7 SECONDS (9.7-12.2) H 06/09/17 14:38 INR 1.1 06/09/17 14:38 APTT 51 SECONDS (21-34) H D 06/11/17 14:52 - Constitutional Appears: Well - Head Exam Head Exam: ATRAUMATIC, NORMAL INSPECTION, NORMOCEPHALIC - Eye Exam Eye Exam: EOMI, Normal appearance, PERRL Pupil Exam: NORMAL ACCOMODATION, PERRL - ENT Exam ENT Exam: Mucous Membranes Moist, Normal Exam - Neck Exam Neck Exam: Full ROM, Normal Inspection. absent: Lymphadenopathy - Respiratory Exam Respiratory Exam: Decreased Breath Sounds - Cardiovascular Exam Cardiovascular Exam: REGULAR RHYTHM, +S1, +S2 - GI/Abdominal Exam GI & Abdominal Exam: Soft, Diminished Bowel Sounds - Rectal Exam Rectal Exam: Deferred Assessment and Plan (1) New onset atrial fibrillation Status: Acute (2) Sepsis Status: Acute (3) UTI (urinary tract infection) Status: Acute
[2017-06-12] MEDS: Meropenem 500 MG in Sodium Chloride 0.9% 100 ML IVPB SCH ×3 (05:30→17:01)
[2017-06-12 07:24] LABS: BASO % 0.2 % (0.0-2.0); HEMATOCRIT 38.6 % (34.0-47.0); MEAN CELL VOLUME 86.6 fL (81.0-99.0); MEAN CORPUSCULAR HEMOGLOBIN 28.9 pg (27.0-31.0); MEAN CORPUSCULAR HGB CONC 33.4 g/dL (33.0-37.0); MEAN PLATELET VOLUME 10.3 fL (7.2-11.7); MONO # 0.7 K/uL (0.0-0.8); MONO % 11.4 % (0.0-10.0); NRBC % 0.1 % (0.0-2.0); RED CELL DISTRIBUTION WIDTH 13.4 % (11.5-14.5); WHITE BLOOD COUNT 6.3 K/uL (4.8-10.8)
[2017-06-12 07:34] LABS: CHLORIDE 101 mmol/L (98-107); POTASSIUM 3.6 mmol/L (3.6-5.2); SODIUM 136 mmol/L (132-148)
[2017-06-12 07:36] LABS: BILIRUBIN,TOTAL 0.9 mg/dL (0.2-1.3); GFR AFRICAN-AMERICAN > 60
[2017-06-12 07:37] LABS: ALB/GLOB RATIO 0.9 (1.0-2.1); ALKALINE PHOSPHATASE 67 U/L (38-126); ALT/SGPT 34 U/L (9-52); AST/SGOT 19 U/L (14-36); BLOOD UREA NITROGEN 11 mg/dL (7-17); CALCIUM 8.4 mg/dl (8.6-10.4); CARBON DIOXIDE 24 mmol/L (22-30); GLUCOSE,RANDOM 127 mg/dL (65-105); TOTAL PROTEIN 6.1 g/dL (6.3-8.3)
[2017-06-12] MEDS: (Novolog) Insulin Aspart, Recombinant 100 u/ml 10 ml vial SC SCH ×4 (08:16→21:20)
[2017-06-12] MEDS: Pantoprazole 40 mg EC Tab PO SCH (10:12)
[2017-06-12] MEDS: Heparin25000 units/250ml 1/2NS 25,000 UNITS/250 ML BAG IV PRN (10:22)
--- NOTE | 2017-06-12 16:09 | CP.PCM.PN ---
Subjective - Date & Time of Evaluation Date of Evaluation: 06/12/17 Time of Evaluation: 12:20 - Subjective Subjective: clinically same Objective - Vital Signs/Intake and Output Vital Signs (last 24 hours): Temp Pulse Resp BP Pulse Ox 97.6 F 75 20 145/61 96 06/12/17 08:06 06/12/17 08:18 06/12/17 08:06 06/12/17 08:06 06/12/17 08:06 Intake and Output: 06/12/17 06/12/17 06:59 18:59 Intake Total 266.4 250 Balance 266.4 250 - Medications Medications: Current Medications Acetaminophen (Tylenol 325mg Tab) 650 mg PO Q6 PRN PRN Reason: fever Last Admin: 06/11/17 21:53 Dose: 650 mg Clonazepam (Klonopin) 0.5 mg PO BID PRN PRN Reason: Anxiety Last Admin: 06/12/17 10:22 Dose: 0.5 mg Home Med (Invokana) 100 mg PO BID [facility] Last Admin: 06/10/17 10:55 Dose: Not Given Heparin Sodium/Sodium Chloride (Heparin 33311 Units/250ml 1/2 Normal Saline) 25 ,000 units in 250 mls @ 8.89 mls/hr IV .Q24H PRN; 14 UNITS/KG/HR PRN Reason: Protocol Last Admin: 06/12/17 10:22 Dose: 14 units/kg/hr, 8.89 mls/hr Meropenem 500 mg/ Sodium (Chloride) 100 mls @ 100 mls/hr IVPB Q6 [facility] Last Admin: 06/12/17 12:15 Dose: 100 mls/hr Insulin Aspart (Novolog) 0 unit SC ACHS [facility] PRN Reason: Protocol Last Admin: 06/12/17 12:16 Dose: 2 unit Metformin HCl (Glucophage) 1,000 mg PO BIDCC [facility] Last Admin: 06/12/17 10:11 Dose: 1,000 mg Pantoprazole Sodium (Protonix Ec Tab) 40 mg PO DAILY [facility] Last Admin: 06/12/17 10:12 Dose: 40 mg Sitagliptin Phosphate (Januvia) 50 mg PO BID [facility] Last Admin: 06/12/17 10:21 Dose: 50 mg Tramadol HCl (Ultram) 50 mg PO Q6 PRN PRN Reason: Pain, moderate (4-7) Last Admin: 06/10/17 16:32 Dose: 50 mg - Labs Labs: 06/12/17 07:00 06/12/17 07:00 PT 12.7 SECONDS (9.7-12.2) H 06/09/17 14:38 INR 1.1 06/09/17 14:38 APTT 50 SECONDS (21-34) H 06/12/17 07:00 - Constitutional Appears: Well - Head Exam Head Exam: ATRAUMATIC, NORMAL INSPECTION, NORMOCEPHALIC - Eye Exam Eye Exam: EOMI, Normal appearance, PERRL Pupil Exam: NORMAL ACCOMODATION, PERRL - ENT Exam ENT Exam: Mucous Membranes Moist, Normal Exam - Neck Exam Neck Exam: Full ROM, Normal Inspection. absent: Lymphadenopathy - Respiratory Exam Respiratory Exam: Decreased Breath Sounds - Cardiovascular Exam Cardiovascular Exam: REGULAR RHYTHM, +S1, +S2 - GI/Abdominal Exam GI & Abdominal Exam: Soft, Diminished Bowel Sounds - Rectal Exam Rectal Exam: Deferred Assessment and Plan (1) New onset atrial fibrillation Status: Acute (2) Sepsis Status: Acute (3) UTI (urinary tract infection) Status: Acute
--- NOTE | 2017-06-12 17:27 | CP.PCM.PN ---
Subjective - Date & Time of Evaluation Date of Evaluation: 06/12/17 Time of Evaluation: 17:23 - Subjective Subjective: DISCUSSED WITH DR. YING THE PLAN FOR [facility] ANTICOAGULATION PT IS STILL ON HEPARIN. PER DR. YING HE DISCUSSED THE ANTICOAGULATION WITH PT'S SON. PER DR. YING, D/C HEPARIN GTT AND START ELIQUIS [address] Anyi ROMEO AWARE OF PLAN. I HAVE ALSO EDUCATED PT AND FAMILY AT BEDSIDE ON THE ELIQUIS. NO FURTHER ORDERS. Objective - Vital Signs/Intake and Output Vital Signs (last 24 hours): Temp Pulse Resp BP Pulse Ox 97.9 F 68 20 154/61 H 97 06/12/17 16:14 06/12/17 16:14 06/12/17 16:14 06/12/17 16:14 06/12/17 16:14 Intake and Output: 06/12/17 06/12/17 06:59 18:59 Intake Total 266.4 250 Balance 266.4 250 - Medications Medications: Current Medications Acetaminophen (Tylenol 325mg Tab) 650 mg PO Q6 PRN PRN Reason: fever Last Admin: 06/11/17 21:53 Dose: 650 mg Apixaban (Eliquis) 5 mg PO BID [facility] Clonazepam (Klonopin) 0.5 mg PO BID PRN PRN Reason: Anxiety Last Admin: 06/12/17 10:22 Dose: 0.5 mg Home Med (Invokana) 100 mg PO BID [facility] Last Admin: 06/10/17 10:55 Dose: Not Given Meropenem 500 mg/ Sodium (Chloride) 100 mls @ 100 mls/hr IVPB Q6 [facility] Last Admin: 06/12/17 17:01 Dose: 100 mls/hr Insulin Aspart (Novolog) 0 unit SC ACHS [facility] PRN Reason: Protocol Last Admin: 06/12/17 16:57 Dose: Not Given Metformin HCl (Glucophage) 1,000 mg PO BIDCC [facility] Last Admin: 06/12/17 17:01 Dose: 1,000 mg Pantoprazole Sodium (Protonix Ec Tab) 40 mg PO DAILY [facility] Last Admin: 06/12/17 10:12 Dose: 40 mg Sitagliptin Phosphate (Januvia) 50 mg PO BID [facility] Last Admin: 06/12/17 17:01 Dose: 50 mg Tramadol HCl (Ultram) 50 mg PO Q6 PRN PRN Reason: Pain, moderate (4-7) Last Admin: 06/10/17 16:32 Dose: 50 mg - Labs Labs: 06/12/17 07:00 06/12/17 07:00 PT 12.7 SECONDS (9.7-12.2) H 06/09/17 14:38 INR 1.1 06/09/17 14:38 APTT 50 SECONDS (21-34) H 06/12/17 07:00
--- NOTE | 2017-06-12 18:43 | CARD ---
APPROVED REPORT EXAM: Two-dimensional and M-mode echocardiogram with Doppler and color Doppler. Other Information Quality : GoodRhythm : NSR INDICATION Atrial Fibrillation RISK FACTORS Diabetes 2D DIMENSIONS IVSd1.5 (0.7-1.1cm)LVDd4.2 (3.9-5.9cm) PWd1.2 (0.7-1.1cm)LVDs2.9 (2.5-4.0cm) FS (%) 30.3 %LVEF (%)58.0 (>50%) M-Mode DIMENSIONS Left Atrium (MM)4.06 (2.5-4.0cm)Aortic Root3.64 (2.2-3.7cm) Aortic Cusp Exc.2.09 (1.5-2.0cm) Mitral Valve MV E Rvudrjsg19.2cm/sMV A Grswfnhp08.1cm/sE/A ratio1.8 TDI E/Lateral E'0.0E/Medial E'0.0 Tricuspid Valve TR Peak Bntrdrhv705jf/sTR Peak Gr.[id number] LEFT VENTRICLE The left ventricle is normal size. Left ventricle systolic function is normal. The Ejection Fraction is 60-65%. RIGHT VENTRICLE The right ventricle is normal size. The right ventricular systolic function is normal. ATRIA The left atrium is moderately dilated. The right atrium is moderately dilated. The interatrial septum is intact with no evidence for an atrial septal defect. AORTIC VALVE The aortic valve is mildly to moderately sclerotic. No aortic regurgitation is present. There is no aortic valvular stenosis. MITRAL VALVE Mitral annular calcification is mild. There is no mitral valve stenosis. Mitral regurgitation is mild. TRICUSPID VALVE The tricuspid valve is normal in structure. There is moderate tricuspid regurgitation. There is no tricuspid valve stenosis. PULMONIC VALVE The pulmonary valve is normal in structure. GREAT VESSELS The aortic root is normal in size. <Conclusion> Technically difficult study Left ventricle systolic function is normal. The Ejection Fraction is 60-65%. The right ventricular systolic function is normal. The left atrium is moderately dilated. The right atrium is moderately dilated. Mitral regurgitation is mild. There is moderate tricuspid regurgitation. Moderate Pulmonary HTN
--- NOTE | 2017-06-12 19:44 | CARD ---
APPROVED REPORT EKG Measurement Heart [id number] <Conclusion> Sinus rhythm with frequent premature ventricular complexes with ventricular escape complexes Right bundle branch block Left posterior fascicular block Bifascicular block Abnormal ECG
--- NOTE | 2017-06-12 22:29 | CP.PCM.PN ---
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 Objective - Vital Signs/Intake and Output Vital Signs (last 24 hours): Temp Pulse Resp BP Pulse Ox 97.9 F 76 20 154/61 H 97 06/12/17 16:14 06/12/17 20:00 06/12/17 16:14 06/12/17 16:14 06/12/17 16:14 Intake and Output: 06/12/17 06/13/17 18:59 06:59 Intake Total 250 Balance 250 - Medications Medications: Current Medications Acetaminophen (Tylenol 325mg Tab) 650 mg PO Q6 PRN PRN Reason: fever Last Admin: 06/11/17 21:53 Dose: 650 mg Apixaban (Eliquis) 5 mg PO BID [facility] Last Admin: 06/12/17 18:51 Dose: 5 mg Clonazepam (Klonopin) 0.5 mg PO BID PRN PRN Reason: Anxiety Last Admin: 06/12/17 10:22 Dose: 0.5 mg Home Med (Invokana) 100 mg PO BID [facility] Last Admin: 06/10/17 10:55 Dose: Not Given Meropenem 500 mg/ Sodium (Chloride) 100 mls @ 100 mls/hr IVPB Q6 [facility] Last Admin: 06/12/17 17:01 Dose: 100 mls/hr Insulin Aspart (Novolog) 0 unit SC ACHS [facility] PRN Reason: Protocol Last Admin: 06/12/17 21:20 Dose: Not Given Metformin HCl (Glucophage) 1,000 mg PO BIDCC [facility] Last Admin: 06/12/17 17:01 Dose: 1,000 mg Pantoprazole Sodium (Protonix Ec Tab) 40 mg PO DAILY [facility] Last Admin: 06/12/17 10:12 Dose: 40 mg Sitagliptin Phosphate (Januvia) 50 mg PO BID [facility] Last Admin: 06/12/17 17:01 Dose: 50 mg Tramadol HCl (Ultram) 50 mg PO Q6 PRN PRN Reason: Pain, moderate (4-7) Last Admin: 06/10/17 16:32 Dose: 50 mg - Labs Labs: 06/12/17 07:00 06/12/17 07:00 PT 12.7 SECONDS (9.7-12.2) H 06/09/17 14:38 INR 1.1 06/09/17 14:38 APTT 50 SECONDS (21-34) H 06/12/17 07:00 - Head Exam Head Exam: ATRAUMATIC, NORMAL INSPECTION - Eye Exam Eye Exam: EOMI, PERRL Pupil Exam: NORMAL ACCOMODATION - ENT Exam ENT Exam: Mucous Membranes Moist - Respiratory Exam Respiratory Exam: Clear to Ausculation Bilateral, NORMAL BREATHING PATTERN - Cardiovascular Exam Cardiovascular Exam: Irregular Rhythm, +S1, +S2 - GI/Abdominal Exam GI & Abdominal Exam: Soft, Normal Bowel Sounds - Extremities Exam Extremities Exam: Full ROM - Neurological Exam Neurological Exam: Alert, Oriented x3 - Psychiatric Exam Psychiatric exam: Normal Mood - Skin Skin Exam: Warm Assessment and Plan - Assessment and Plan (Free Text) Assessment: 1. A Fib rate controlled On Eliquis 5 po bid 2. HTN 3. Urosepsis on IV antibiotics
--- NOTE | 2017-06-12 22:30 | CP.PCM.PN ---
Subjective - Date & Time of Evaluation Date of Evaluation: 06/12/17 Time of Evaluation: 16:10 - Subjective Subjective: Patient seen and evaluated Comfortable Patient started on Eliquis Objective - Vital Signs/Intake and Output Vital Signs (last 24 hours): Temp Pulse Resp BP Pulse Ox 97.9 F 76 20 154/61 H 97 06/12/17 16:14 06/12/17 20:00 06/12/17 16:14 06/12/17 16:14 06/12/17 16:14 Intake and Output: 06/12/17 06/13/17 18:59 06:59 Intake Total 250 Balance 250 - Medications Medications: Current Medications Acetaminophen (Tylenol 325mg Tab) 650 mg PO Q6 PRN PRN Reason: fever Last Admin: 06/11/17 21:53 Dose: 650 mg Apixaban (Eliquis) 5 mg PO BID [facility] Last Admin: 06/12/17 18:51 Dose: 5 mg Clonazepam (Klonopin) 0.5 mg PO BID PRN PRN Reason: Anxiety Last Admin: 06/12/17 10:22 Dose: 0.5 mg Home Med (Invokana) 100 mg PO BID [facility] Last Admin: 06/10/17 10:55 Dose: Not Given Meropenem 500 mg/ Sodium (Chloride) 100 mls @ 100 mls/hr IVPB Q6 [facility] Last Admin: 06/12/17 17:01 Dose: 100 mls/hr Insulin Aspart (Novolog) 0 unit SC ACHS [facility] PRN Reason: Protocol Last Admin: 06/12/17 21:20 Dose: Not Given [facility] Last Admin: 06/12/17 17:01 Dose: 1,000 mg Pantoprazole Sodium (Protonix Ec Tab) 40 mg PO DAILY [facility] Last Admin: 06/12/17 10:12 Dose: 40 mg Sitagliptin Phosphate (Januvia) 50 mg PO BID [facility] Last Admin: 06/12/17 17:01 Dose: 50 mg Tramadol HCl (Ultram) 50 mg PO Q6 PRN PRN Reason: Pain, moderate (4-7) Last Admin: 06/10/17 16:32 Dose: 50 mg - Labs Labs: 06/12/17 07:00 06/12/17 07:00 PT 12.7 SECONDS (9.7-12.2) H 08/26/17 14:38 INR 1.1 06/09/17 14:38 APTT 50 SECONDS (21-34) H 06/12/17 07:00 - Head Exam Head Exam: ATRAUMATIC, NORMAL INSPECTION - Eye Exam Eye Exam: EOMI, PERRL Pupil Exam: NORMAL ACCOMODATION - ENT Exam ENT Exam: Mucous Membranes Moist - Neck Exam Neck Exam: Full ROM - Respiratory Exam Respiratory Exam: Clear to Ausculation Bilateral, NORMAL BREATHING PATTERN - Cardiovascular Exam Cardiovascular Exam: Irregular Rhythm, +S1, +S2 - GI/Abdominal Exam GI & Abdominal Exam: Soft, Normal Bowel Sounds - Extremities Exam Extremities Exam: Full ROM - Neurological Exam Neurological Exam: Alert, Oriented x3 - Psychiatric Exam Psychiatric exam: Normal Mood - Skin Skin Exam: Warm Assessment and Plan - Assessment and Plan (Free Text) Assessment: 1. A Fib rate controlled On Eliquis 5 po bid 2. HTN 3. Urosepsis on IV antibiotics
[2017-06-13] MEDS: Meropenem 500 MG in Sodium Chloride 0.9% 100 ML IVPB SCH ×4 (00:22→17:43)
[2017-06-13] MEDS: (Novolog) Insulin Aspart, Recombinant 100 u/ml 10 ml vial SC SCH ×4 (07:21→21:53)
[2017-06-13 07:28] LABS: INR 1.1
[2017-06-13 07:30] LABS: HEMATOCRIT 39.6 % (34.0-47.0); MEAN CELL VOLUME 86.8 fL (81.0-99.0); MEAN CORPUSCULAR HEMOGLOBIN 29.7 pg (27.0-31.0); MEAN CORPUSCULAR HGB CONC 34.2 g/dL (33.0-37.0); MEAN PLATELET VOLUME 9.9 fL (7.2-11.7); RED CELL DISTRIBUTION WIDTH 13.4 % (11.5-14.5); WHITE BLOOD COUNT 6.2 K/uL (4.8-10.8)
[2017-06-13 07:33] LABS: CHLORIDE 100 mmol/L (98-107)
[2017-06-13 07:34] LABS: POTASSIUM 3.7 mmol/L (3.6-5.2); SODIUM 136 mmol/L (132-148)
[2017-06-13 07:36] LABS: GFR AFRICAN-AMERICAN > 60
[2017-06-13 07:37] LABS: BLOOD UREA NITROGEN 12 mg/dL (7-17); CALCIUM 8.9 mg/dl (8.6-10.4); CARBON DIOXIDE 25 mmol/L (22-30); GLUCOSE,RANDOM 127 mg/dL (65-105)
[2017-06-13] MEDS: Pantoprazole 40 mg EC Tab PO SCH (11:00)
--- NOTE | 2017-06-13 12:21 | CP.PCM.PN ---
Subjective - Date & Time of Evaluation Date of Evaluation: 06/13/17 Time of Evaluation: 12:21 - Subjective Subjective: DISCUSSED PT CASE WITH DR. YING; PT TO [facility] TOMOR[facility] MORNING AT 1100. ALSO DISCUSSED WITH DR. GARCIA AND PT TO CONTINUE THE [facility] X2 WEEKS. CM TO ARRANGE FOR HOME INFUSION PER PT AND SON PREFERENCE. 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 PICC SHAMAR BUSTOS TO INSERT TODAY. NO FURTHER ORDERS. Objective - Vital Signs/Intake and Output Vital Signs (last 24 hours): Temp Pulse Resp BP Pulse Ox 98.2 F 74 20 148/65 97 06/13/17 07:00 06/13/17 08:47 06/13/17 07:00 06/13/17 07:00 06/13/17 07:00 Intake and Output: 06/13/17 06/13/17 06:59 18:59 Intake Total 952 Output Total 800 Balance 152 - Medications Medications: Current Medications Acetaminophen (Tylenol 325mg Tab) 650 mg PO Q6 PRN PRN Reason: fever Last Admin: 06/11/17 21:53 Dose: 650 mg Apixaban (Eliquis) 5 mg PO BID [facility] Last Admin: 06/13/17 11:00 Dose: 5 mg Clonazepam (Klonopin) 0.5 mg PO BID PRN PRN Reason: Anxiety Last Admin: 06/12/17 10:22 Dose: 0.5 mg Home Med (Invokana) 100 mg PO BID [facility] Last Admin: 06/10/17 10:55 Dose: Not Given Meropenem 500 mg/ Sodium (Chloride) 100 mls @ 100 mls/hr IVPB Q6 [facility] Last Admin: 06/13/17 11:30 Dose: 100 mls/hr Insulin Aspart (Novolog) 0 unit SC ACHS [facility] PRN Reason: Protocol Last Admin: 06/13/17 07:21 Dose: Not Given Metformin HCl (Glucophage) 1,000 mg PO BIDCC [facility] Last Admin: 06/13/17 09:00 Dose: 1,000 mg Pantoprazole Sodium (Protonix Ec Tab) 40 mg PO DAILY [facility] Last Admin: 06/13/17 11:00 Dose: 40 mg Sitagliptin Phosphate (Januvia) 50 mg PO BID [facility] Last Admin: 06/13/17 11:00 Dose: 50 mg Tramadol HCl (Ultram) 50 mg PO Q6 PRN PRN Reason: Pain, moderate (4-7) Last Admin: 06/10/17 16:32 Dose: 50 mg - Labs Labs: 06/13/17 07:10 06/13/17 07:10 PT 12.9 SECONDS (9.7-12.2) H 06/13/17 07:10 INR 1.1 06/13/17 07:10 APTT 50 SECONDS (21-34) H 06/12/17 07:00
--- NOTE | 2017-06-13 15:40 | RAD ---
HISTORY: verify right PICC COMPARISON: 06/09/2017 FINDINGS: LUNGS: No active pulmonary disease. PLEURA: No significant pleural effusion identified, no pneumothorax apparent. CARDIOVASCULAR: Right PICC catheter terminating in SVC region just above cavoatrial junction. OSSEOUS STRUCTURES: No significant abnormalities. VISUALIZED UPPER ABDOMEN: Normal. OTHER FINDINGS: None. IMPRESSION: Right PICC catheter terminating in SVC region.
--- NOTE | 2017-06-13 18:01 | CP.PCM.PN ---
Subjective - Date & Time of Evaluation Date of Evaluation: 06/13/17 Time of Evaluation: 07:00 - Subjective Subjective: + ESBL E COLI sepsis recc eval cont iv antibiotics min 14-21 days recc imaging Objective - Vital Signs/Intake and Output Vital Signs (last 24 hours): Temp Pulse Resp BP Pulse Ox 98.0 F 59 L 20 151/64 H 96 06/13/17 16:00 06/13/17 16:00 06/13/17 16:00 06/13/17 16:00 06/13/17 16:00 Intake and Output: 06/13/17 06/13/17 06:59 18:59 Intake Total 952 Output Total 800 Balance 152 - Medications Medications: Current Medications Acetaminophen (Tylenol 325mg Tab) 650 mg PO Q6 PRN PRN Reason: fever Last Admin: 06/11/17 21:53 Dose: 650 mg Apixaban (Eliquis) 5 mg PO BID [facility] Last Admin: 06/13/17 17:43 Dose: 5 mg Clonazepam (Klonopin) 0.5 mg PO BID PRN PRN Reason: Anxiety Last Admin: 06/12/17 10:22 Dose: 0.5 mg Home Med (Invokana) 100 mg PO BID [facility] Last Admin: 06/10/17 10:55 Dose: Not Given Meropenem 500 mg/ Sodium (Chloride) 100 mls @ 100 mls/hr IVPB Q6 [facility] Last Admin: 06/13/17 17:43 Dose: 100 mls/hr Insulin Aspart (Novolog) 0 unit SC ACHS [facility] PRN Reason: Protocol Last Admin: 06/13/17 17:44 Dose: 1 unit [facility] Last Admin: 06/13/17 17:43 Dose: 1,000 mg Pantoprazole Sodium (Protonix Ec Tab) 40 mg PO DAILY [facility] Last Admin: 06/13/17 11:00 Dose: 40 mg Sitagliptin Phosphate (Januvia) 50 mg PO BID [facility] Last Admin: 06/13/17 17:43 Dose: 50 mg Tramadol HCl (Ultram) 50 mg PO Q6 PRN PRN Reason: Pain, moderate (4-7) Last Admin: 06/10/17 16:32 Dose: 50 mg - Labs Labs: 06/13/17 07:10 06/13/17 07:10 PT 12.9 SECONDS (9.7-12.2) H 06/13/17 07:10 INR 1.1 06/13/17 07:10 APTT 50 SECONDS (21-34) H 06/12/17 07:00 - Constitutional Appears: Non-toxic, Chronically Ill - Head Exam Head Exam: NORMOCEPHALIC - Eye Exam Eye Exam: PERRL - ENT Exam ENT Exam: Mucous Membranes Dry - Neck Exam Neck Exam: absent: Lymphadenopathy - Respiratory Exam Respiratory Exam: Decreased Breath Sounds - Cardiovascular Exam Cardiovascular Exam: REGULAR RHYTHM - GI/Abdominal Exam GI & Abdominal Exam: Distended, Soft Assessment and Plan (1) New onset atrial fibrillation Status: Acute (2) Sepsis Status: Acute (3) UTI (urinary tract infection) Status: Acute
--- NOTE | 2017-06-13 18:22 | CP.PCM.PN ---
Subjective - Date & Time of Evaluation Date of Evaluation: 06/13/17 Time of Evaluation: 11:20 - Subjective Subjective: clinically same Objective - Vital Signs/Intake and Output Vital Signs (last 24 hours): Temp Pulse Resp BP Pulse Ox 98.0 F 59 L 20 151/64 H 96 06/13/17 16:00 06/13/17 16:00 06/13/17 16:00 06/13/17 16:00 06/13/17 16:00 Intake and Output: 06/13/17 06/13/17 06:59 18:59 Intake Total 952 Output Total 800 Balance 152 - Medications Medications: Current Medications Acetaminophen (Tylenol 325mg Tab) 650 mg PO Q6 PRN PRN Reason: fever Last Admin: 06/11/17 21:53 Dose: 650 mg Apixaban (Eliquis) 5 mg PO BID [facility] Last Admin: 06/13/17 17:43 Dose: 5 mg Clonazepam (Klonopin) 0.5 mg PO BID PRN PRN Reason: Anxiety Last Admin: 06/12/17 10:22 Dose: 0.5 mg Home Med (Invokana) 100 mg PO BID [facility] Last Admin: 06/10/17 10:55 Dose: Not Given Meropenem 500 mg/ Sodium (Chloride) 100 mls @ 100 mls/hr IVPB Q6 [facility] Last Admin: 06/13/17 17:43 Dose: 100 mls/hr Insulin Aspart (Novolog) 0 unit SC ACHS [facility] PRN Reason: Protocol Last Admin: 06/13/17 17:44 Dose: 1 unit Metformin HCl (Glucophage) 1,000 mg PO BIDCC [facility] Last Admin: 06/13/17 17:43 Dose: 1,000 mg Pantoprazole Sodium (Protonix Ec Tab) 40 mg PO DAILY [facility] Last Admin: 06/13/17 11:00 Dose: 40 mg Sitagliptin Phosphate (Januvia) 50 mg PO BID [facility] Last Admin: 06/13/17 17:43 Dose: 50 mg Tramadol HCl (Ultram) 50 mg PO Q6 PRN PRN Reason: Pain, moderate (4-7) Last Admin: 06/10/17 16:32 Dose: 50 mg - Labs Labs: 06/13/17 07:10 06/13/17 07:10 PT 12.9 SECONDS (9.7-12.2) H 06/13/17 07:10 INR 1.1 06/13/17 07:10 APTT 50 SECONDS (21-34) H 06/12/17 07:00 - Constitutional Appears: Well - Head Exam Head Exam: ATRAUMATIC, NORMAL INSPECTION, NORMOCEPHALIC - Eye Exam Eye Exam: EOMI, Normal appearance, PERRL Pupil Exam: NORMAL ACCOMODATION, PERRL - ENT Exam ENT Exam: Mucous Membranes Moist, Normal Exam - Neck Exam Neck Exam: Full ROM, Normal Inspection. absent: Lymphadenopathy - Respiratory Exam Respiratory Exam: Decreased Breath Sounds - Cardiovascular Exam Cardiovascular Exam: REGULAR RHYTHM, +S1, +S2 - GI/Abdominal Exam GI & Abdominal Exam: Soft, Diminished Bowel Sounds - Rectal Exam Rectal Exam: Deferred Assessment and Plan (1) New onset atrial fibrillation Status: Acute (2) Sepsis Status: Acute (3) UTI (urinary tract infection) Status: Acute
--- NOTE | 2017-06-13 23:28 | CP.PCM.PN ---
Subjective - Date & Time of Evaluation Date of Evaluation: 06/13/17 Time of Evaluation: 10:30 - Subjective Subjective: Patient with bacteremia For [facility] tomorrow as per ID request Objective - Vital Signs/Intake and Output Vital Signs (last 24 hours): Temp Pulse Resp BP Pulse Ox 98.0 F 59 L 20 151/64 H 96 06/13/17 16:00 06/13/17 16:00 06/13/17 16:00 06/13/17 16:00 06/13/17 16:00 Intake and Output: 06/13/17 06/14/17 18:59 06:59 Intake Total 290 Output Total 300 Balance -10 - Medications Medications: Current Medications Acetaminophen (Tylenol 325mg Tab) 650 mg PO Q6 PRN PRN Reason: fever Last Admin: 06/11/17 21:53 Dose: 650 mg Apixaban (Eliquis) 5 mg PO BID [facility] Last Admin: 06/13/17 17:43 Dose: 5 mg Clonazepam (Klonopin) 0.5 mg PO BID PRN PRN Reason: Anxiety Last Admin: 06/13/17 22:01 Dose: 0.5 mg Home Med (Invokana) 100 mg PO BID [facility] Last Admin: 06/10/17 10:55 Dose: Not Given Meropenem 500 mg/ Sodium (Chloride) 100 mls @ 100 mls/hr IVPB Q6 [facility] Last Admin: 06/13/17 17:43 Dose: 100 mls/hr Insulin Aspart (Novolog) 0 unit SC ACHS [facility] PRN Reason: Protocol Last Admin: 06/13/17 21:53 Dose: Not Given Metformin HCl (Glucophage) 1,000 mg PO BIDCC [facility] Last Admin: 06/13/17 17:43 Dose: 1,000 mg Pantoprazole Sodium (Protonix Ec Tab) 40 mg PO DAILY [facility] Last Admin: 06/13/17 11:00 Dose: 40 mg Sitagliptin Phosphate (Januvia) 50 mg PO BID [facility] Last Admin: 06/13/17 17:43 Dose: 50 mg Tramadol HCl (Ultram) 50 mg PO Q6 PRN PRN Reason: Pain, moderate (4-7) Last Admin: 06/10/17 16:32 Dose: 50 mg - Labs Labs: 06/13/17 07:10 06/13/17 07:10 PT 12.9 SECONDS (9.7-12.2) H 06/13/17 07:10 INR 1.1 06/13/17 07:10 APTT 50 SECONDS (21-34) H 06/12/17 07:00 - Head Exam Head Exam: ATRAUMATIC, NORMAL INSPECTION - Eye Exam Eye Exam: EOMI, PERRL Pupil Exam: NORMAL ACCOMODATION - ENT Exam ENT Exam: Mucous Membranes Moist - Neck Exam Neck Exam: Full ROM, Normal Inspection - Respiratory Exam Respiratory Exam: Clear to Ausculation Bilateral, NORMAL BREATHING PATTERN - Cardiovascular Exam Cardiovascular Exam: Irregular Rhythm, +S1, +S2 - GI/Abdominal Exam GI & Abdominal Exam: Soft, Normal Bowel Sounds - Extremities Exam Extremities Exam: Full ROM - Neurological Exam Neurological Exam: Alert, Oriented x3 - Psychiatric Exam Psychiatric exam: Normal Mood - Skin Skin Exam: Warm Assessment and Plan - Assessment and Plan (Free Text) Assessment: 1. A Fib rate controlled On Eliquis 5 po bid 2. HTN 3. Urosepsis on IV antibiotics [facility] tomorrow r/o Endocarditis
[2017-06-14] MEDS: Meropenem 500 MG in Sodium Chloride 0.9% 100 ML IVPB SCH ×4 (00:17→18:15)
[2017-06-14 06:25] LABS: HEMATOCRIT 40.3 % (34.0-47.0); MEAN CELL VOLUME 86.7 fL (81.0-99.0); MEAN CORPUSCULAR HGB CONC 33.5 g/dL (33.0-37.0); MEAN PLATELET VOLUME 9.9 fL (7.2-11.7); RED CELL DISTRIBUTION WIDTH 13.4 % (11.5-14.5); WHITE BLOOD COUNT 6.5 K/uL (4.8-10.8)
[2017-06-14 06:41] LABS: ALB/GLOB RATIO 1.1 (1.0-2.1); ALKALINE PHOSPHATASE 78 U/L (38-126); ALT/SGPT 28 U/L (9-52); AST/SGOT 29 U/L (14-36); BILIRUBIN,TOTAL 0.5 mg/dL (0.2-1.3); BLOOD UREA NITROGEN 12 mg/dL (7-17); CARBON DIOXIDE 27 mmol/L (22-30); CHLORIDE 99 mmol/L (98-107); GFR AFRICAN-AMERICAN > 60; GLUCOSE,RANDOM 134 mg/dL (65-105); SODIUM 136 mmol/L (132-148); TOTAL PROTEIN 6.3 g/dL (6.3-8.3)
[2017-06-14] MEDS: (Novolog) Insulin Aspart, Recombinant 100 u/ml 10 ml vial SC SCH ×4 (07:30→22:19)
[2017-06-14] MEDS ORDERED: Propofol 10 mg/ml Inj (20 ML) ONE (09:47)
[2017-06-14] MEDS ORDERED: Lidocaine 4% (Laryng-O-Jet) Kit MM ONE (09:58)
[2017-06-14] MEDS: Pantoprazole 40 mg EC Tab PO SCH (11:55)
--- NOTE | 2017-06-14 14:49 | CP.PCM.PN ---
Subjective - Date & Time of Evaluation Date of Evaluation: 06/14/17 Time of Evaluation: 14:48 - Subjective Subjective: PT SEEN AND EXAMINED TODAY BY DR Tru ROMEO, PT DENIES ANY CP, SOB, RESP EASY AND UNLABORED. NAD Objective - Vital Signs/Intake and Output Vital Signs (last 24 hours): Temp Pulse Resp BP Pulse Ox 97.5 F L 73 18 147/69 97 06/14/17 07:56 06/14/17 07:56 06/14/17 07:56 06/14/17 07:56 06/14/17 07:56 Intake and Output: 06/14/17 06/14/17 06:59 18:59 Intake Total 630 Output Total 300 Balance 330 - Medications Medications: Current Medications Acetaminophen (Tylenol 325mg Tab) 650 mg PO Q6 PRN PRN Reason: fever Last Admin: 06/14/17 12:22 Dose: 650 mg Apixaban (Eliquis) 5 mg PO BID [facility] Last Admin: 06/14/17 11:55 Dose: 5 mg Clonazepam (Klonopin) 0.5 mg PO BID PRN PRN Reason: Anxiety Last Admin: 06/13/17 22:01 Dose: 0.5 mg Home Med (Invokana) 100 mg PO BID [facility] Last Admin: 06/10/17 10:55 Dose: Not Given Meropenem 500 mg/ Sodium (Chloride) 100 mls @ 100 mls/hr IVPB Q6 [facility] Last Admin: 06/14/17 12:00 Dose: 100 mls/hr Insulin Aspart (Novolog) 0 unit SC ACHS [facility] PRN Reason: Protocol Last Admin: 06/14/17 11:56 Dose: Not Given [facility] Last Admin: 06/14/17 11:54 Dose: 1,000 mg Pantoprazole Sodium (Protonix Ec Tab) 40 mg PO DAILY [facility] Last Admin: 06/14/17 11:55 Dose: 40 mg Sitagliptin Phosphate (Januvia) 50 mg PO BID [facility] Last Admin: 06/14/17 11:54 Dose: 50 mg Tramadol HCl (Ultram) 50 mg PO Q6 PRN PRN Reason: Pain, moderate (4-7) Last Admin: 06/10/17 16:32 Dose: 50 mg - Labs Labs: 06/14/17 06:13 06/14/17 06:13 PT 12.9 SECONDS (9.7-12.2) H 06/13/17 07:10 INR 1.1 06/13/17 07:10 APTT 50 SECONDS (21-34) H 06/12/17 07:00 Assessment and Plan - Assessment and Plan (Free Text) Plan: 81 Y/O FEMALE WITH PMHX ANXIETY ADMITTED FOR UROSEPSIS, A FIB [facility]-NO ENDOCARDITIS PT CLEARED FOR D/C PER DR Tru ROMEO, DR GARCIA, DR STEPAN CHIU PER DR YING IV ABX- FOR [address] GARCIA HOME CARE INFUSION NURSE -- TO TEACH FAMILY MEMBER TO TEACH IV INFUSION
[2017-06-14 17:00] VITALS: RESP 20
--- NOTE | 2017-06-14 17:20 | CP.PCM.PN ---
Subjective - Date & Time of Evaluation Date of Evaluation: 06/14/17 Time of Evaluation: 11:20 - Subjective Subjective: clinically same Objective - Vital Signs/Intake and Output Vital Signs (last 24 hours): Temp Pulse Resp BP Pulse Ox 97.8 F 65 20 158/61 H 97 06/14/17 15:05 06/14/17 15:05 06/14/17 15:05 06/14/17 15:05 06/14/17 15:05 Intake and Output: 06/14/17 06/14/17 06:59 18:59 Intake Total 630 Output Total 300 Balance 330 - Medications Medications: Current Medications Acetaminophen (Tylenol 325mg Tab) 650 mg PO Q6 PRN PRN Reason: fever Last Admin: 06/14/17 12:22 Dose: 650 mg Apixaban (Eliquis) 5 mg PO BID [facility] Last Admin: 06/14/17 11:55 Dose: 5 mg Clonazepam (Klonopin) 0.5 mg PO BID PRN PRN Reason: Anxiety Last Admin: 06/13/17 22:01 Dose: 0.5 mg Home Med (Invokana) 100 mg PO BID [facility] Last Admin: 06/10/17 10:55 Dose: Not Given Meropenem 500 mg/ Sodium (Chloride) 100 mls @ 100 mls/hr IVPB Q6 [facility] Last Admin: 06/14/17 12:00 Dose: 100 mls/hr Insulin Aspart (Novolog) 0 unit SC ACHS [facility] PRN Reason: Protocol Last Admin: 06/14/17 11:56 Dose: Not Given Metformin HCl (Glucophage) 1,000 mg PO BIDCC [facility] Last Admin: 06/14/17 11:54 Dose: 1,000 mg Pantoprazole Sodium (Protonix Ec Tab) 40 mg PO DAILY [facility] Last Admin: 06/14/17 11:55 Dose: 40 mg Sitagliptin Phosphate (Januvia) 50 mg PO BID [facility] Last Admin: 06/14/17 11:54 Dose: 50 mg Tramadol HCl (Ultram) 50 mg PO Q6 PRN PRN Reason: Pain, moderate (4-7) Last Admin: 06/10/17 16:32 Dose: 50 mg - Labs Labs: 06/14/17 06:13 06/14/17 06:13 PT 12.9 SECONDS (9.7-12.2) H 06/13/17 07:10 INR 1.1 06/13/17 07:10 APTT 50 SECONDS (21-34) H 06/12/17 07:00 - Constitutional Appears: Well - Head Exam Head Exam: ATRAUMATIC, NORMAL INSPECTION, NORMOCEPHALIC - Eye Exam Eye Exam: EOMI, Normal appearance, PERRL Pupil Exam: NORMAL ACCOMODATION, PERRL - ENT Exam ENT Exam: Mucous Membranes Moist, Normal Exam - Neck Exam Neck Exam: Full ROM, Normal Inspection. absent: Lymphadenopathy - Respiratory Exam Respiratory Exam: Decreased Breath Sounds - Cardiovascular Exam Cardiovascular Exam: REGULAR RHYTHM, +S1, +S2 - GI/Abdominal Exam GI & Abdominal Exam: Soft, Diminished Bowel Sounds - Rectal Exam Rectal Exam: Deferred Assessment and Plan (1) New onset atrial fibrillation Status: Acute (2) Sepsis Status: Acute (3) UTI (urinary tract infection) Status: Acute
--- NOTE | 2017-06-14 22:57 | CP.PCM.PN ---
Subjective - Date & Time of Evaluation Date of Evaluation: 06/14/17 Time of Evaluation: 12:05 - Subjective Subjective: Patient s/p [facility] No evidence of endocarditis Normal LV systolic function Full report to follow Objective - Vital Signs/Intake and Output Vital Signs (last 24 hours): Temp Pulse Resp BP Pulse Ox 97.8 F 65 20 158/61 H 97 06/14/17 15:05 06/14/17 15:05 06/14/17 15:05 06/14/17 15:05 06/14/17 15:05 - Medications Medications: Current Medications Acetaminophen (Tylenol 325mg Tab) 650 mg PO Q6 PRN PRN Reason: fever Last Admin: 06/14/17 12:22 Dose: 650 mg Apixaban (Eliquis) 5 mg PO BID [facility] Last Admin: 06/14/17 18:10 Dose: 5 mg Clonazepam (Klonopin) 0.5 mg PO BID PRN PRN Reason: Anxiety Last Admin: 06/13/17 22:01 Dose: 0.5 mg Home Med (Invokana) 100 mg PO BID [facility] Last Admin: 06/10/17 10:55 Dose: Not Given Meropenem 500 mg/ Sodium (Chloride) 100 mls @ 100 mls/hr IVPB Q6 [facility] Last Admin: 06/14/17 18:15 Dose: 100 mls/hr Insulin Aspart (Novolog) 0 unit SC ACHS [facility] PRN Reason: Protocol Last Admin: 06/14/17 22:19 Dose: Not Given Metformin HCl (Glucophage) 1,000 mg PO BIDCC [facility] Last Admin: 06/14/17 18:10 Dose: 1,000 mg Pantoprazole Sodium (Protonix Ec Tab) 40 mg PO DAILY [facility] Last Admin: 06/14/17 11:55 Dose: 40 mg Sitagliptin Phosphate (Januvia) 50 mg PO BID [facility] Last Admin: 06/14/17 18:10 Dose: 50 mg Tramadol HCl (Ultram) 50 mg PO Q6 PRN PRN Reason: Pain, moderate (4-7) Last Admin: 06/10/17 16:32 Dose: 50 mg - Labs Labs: 06/14/17 06:13 06/14/17 06:13 PT 12.9 SECONDS (9.7-12.2) H 06/13/17 07:10 INR 1.1 06/13/17 07:10 APTT 50 SECONDS (21-34) H 06/12/17 07:00
[2017-06-15] MEDS: Meropenem 500 MG in Sodium Chloride 0.9% 100 ML IVPB SCH ×2 (00:21→05:08)
[2017-06-15 07:51] VITALS: BP 159/62; PULSE 55; TEMP 98.4; O2SAT 20
[2017-06-15] MEDS: (Novolog) Insulin Aspart, Recombinant 100 u/ml 10 ml vial SC SCH (09:13)
[2017-06-15] MEDS: Pantoprazole 40 mg EC Tab PO SCH (09:13)
--- NOTE | 2017-06-15 10:45 | CP.PCM.PN ---
Subjective - Date & Time of Evaluation Date of Evaluation: 06/15/17 Time of Evaluation: 10:42 - Subjective Subjective: PT AND FAMILY REQUESTED TO SPEAK WITH ME. THEY HAD MANY QUESTIONS REGARDING D/ C AND HOME MEDS, FOLLOW UP APPTS, AND INFUSION COMPANY. [employer] CLARIFIED ALL CONCERNS AND DISCUSSED EVERYTHING AT GREAT LENGTH. THEY ARE AWARE THAT PT NEEDS TO F/U WITH DR. ROMEO TOMORROW MORNING IN THE OFFICE. [facility] WILL MEET THEM AT THE HOME FOR IV ABX TODAY AT NOON. [facility] WILL CONTACT THEM TO BEGIN SERVICES. [employer] CALLED PT'S PHARMACY TO CONFIRM E-RX FORM YESTERDAY AND PER PHARMACIST NO RX WERE REC'D. [employer] CHANGED ELIQUIS RX AND GAVE 1 MONTH SUPPLY RATHER THAN 2 WEEKS; ADDED FLORASTOR X2 WEEKS WITH [facility]; GAVE REFILL RX FOR HOME MEDS; CLARIFIED WHICH MEDS TO STOP TAKING AT HOME. PT TO BE D/C WITH PICC. NO FURTHER ORDERS. Objective - Vital Signs/Intake and Output Vital Signs (last 24 hours): Temp Pulse Resp BP Pulse Ox 98.4 F 55 L 20 159/62 H 20 L 06/15/17 07:50 06/15/17 07:50 06/15/17 07:50 06/15/17 07:50 06/15/17 07:50 Intake and Output: 06/15/17 06/15/17 06:59 18:59 Intake Total 240 Balance 240 - Medications Medications: Current Medications Acetaminophen (Tylenol 325mg Tab) 650 mg PO Q6 PRN PRN Reason: fever Last Admin: 06/14/17 12:22 Dose: 650 mg Apixaban (Eliquis) 5 mg PO BID [facility] Last Admin: 06/14/17 18:10 Dose: 5 mg Clonazepam (Klonopin) 0.5 mg PO BID PRN PRN Reason: Anxiety Last Admin: 06/15/17 09:13 Dose: 0.5 mg Home Med (Invokana) 100 mg PO BID [facility] Last Admin: 06/10/17 10:55 Dose: Not Given Meropenem 500 mg/ Sodium (Chloride) 100 mls @ 100 mls/hr IVPB Q6 [facility] Last Admin: 06/15/17 05:08 Dose: 100 mls/hr Insulin Aspart (Novolog) 0 unit SC ACHS [facility] PRN Reason: Protocol Last Admin: 06/15/17 09:13 Dose: Not Given Metformin HCl (Glucophage) 1,000 mg PO BIDCC [facility] Last Admin: 06/15/17 09:13 Dose: 1,000 mg Pantoprazole Sodium (Protonix Ec Tab) 40 mg PO DAILY [facility] Last Admin: 06/15/17 09:13 Dose: 40 mg Sitagliptin Phosphate (Januvia) 50 mg PO BID [facility] Last Admin: 06/15/17 09:13 Dose: 50 mg Tramadol HCl (Ultram) 50 mg PO Q6 PRN PRN Reason: Pain, moderate (4-7) Last Admin: 06/10/17 16:32 Dose: 50 mg - Labs Labs: 06/14/17 06:13 06/14/17 06:13 PT 12.9 SECONDS (9.7-12.2) H 06/13/17 07:10 INR 1.1 06/13/17 07:10 APTT 50 SECONDS (21-34) H 06/12/17 07:00
--- NOTE | 2017-06-16 09:04 | CP.PCM.PN ---
Subjective - Date & Time of Evaluation Date of Evaluation: 06/15/17 Time of Evaluation: 09:30 - Subjective Subjective: Patient seen and evaluated Denies chest pain and dyspnea Objective - Vital Signs/Intake and Output Vital Signs (last 24 hours): Temp Pulse Resp BP Pulse Ox 98.4 F 55 L 20 159/62 H 20 L 06/15/17 07:50 06/15/17 07:50 06/15/17 07:50 06/15/17 07:50 06/15/17 07:50 - Labs Labs: 06/14/17 06:13 06/14/17 06:13 PT 12.9 SECONDS (9.7-12.2) H 06/13/17 07:10 INR 1.1 06/13/17 07:10 APTT 50 SECONDS (21-34) H 06/12/17 07:00 - Head Exam Head Exam: ATRAUMATIC, NORMAL INSPECTION - Eye Exam Eye Exam: EOMI, PERRL Pupil Exam: NORMAL ACCOMODATION - ENT Exam ENT Exam: Mucous Membranes Moist - Neck Exam Neck Exam: Normal Inspection - Respiratory Exam Respiratory Exam: Clear to Ausculation Bilateral, NORMAL BREATHING PATTERN - Cardiovascular Exam Cardiovascular Exam: Irregular Rhythm, +S1, +S2 - GI/Abdominal Exam GI & Abdominal Exam: Soft, Normal Bowel Sounds - Extremities Exam Extremities Exam: Full ROM - Neurological Exam Neurological Exam: Alert, Oriented x3 - Skin Skin Exam: Warm Assessment and Plan - Assessment and Plan (Free Text) Assessment: 1. A Fib rate controlled On Eliquis 5 po bid 2. HTN 3. Urosepsis on IV antibiotics [facility] negative for Endocarditis
--- NOTE | 2017-06-17 09:04 | CARD ---
APPROVED REPORT EXAM: Transesophageal echocardiogram with color flow Doppler. INDICATION Atrial Fibrillation + BLOOD CULTURE X2, UTI SEPSIS Mitral Valve E/A ratio0.0 TDI E/Lateral E'0.0E/Medial E'0.0 Reason For Test : Rule out endocarditis. PROCEDURE After obtaining informed consent, patient underwent transesophageal echo in the [employer]. Type of Sedation : Conscious Sedation Sedation was achieved with intravenously. The [facility] was performed complications. Throughout the procedure, the blood pressure, pulse oximetry, cardiac rhythm, and rate were monitored. The patient tolerated the procedure without adverse effects. Recovery from conscious sedation was uneventful and vital signs were stable. LEFT VENTRICLE The left ventricle is normal size. Left ventricle systolic function is normal. The Ejection Fraction is 60-65%. No left ventricle thrombus noted on this study. There is no ventricular septal defect visualized. There is no left ventricular aneurysm. RIGHT VENTRICLE The right ventricle is normal size. The right ventricular systolic function is normal. ATRIA The left atrium is moderately dilated. The right atrium is moderately dilated. The interatrial septum is intact with no evidence for an atrial septal defect. AORTIC VALVE The aortic valve is mildly to moderately sclerotic. No aortic regurgitation is present. There is no aortic valvular stenosis. There is no aortic valvular vegetation. MITRAL VALVE Mitral annular calcification is moderate. There is no mitral valve stenosis. Mitral regurgitation is moderate. TRICUSPID VALVE The tricuspid valve is normal in structure. There is moderate tricuspid regurgitation. There is no tricuspid valve prolapse or vegetation. There is no tricuspid valve stenosis. PULMONIC VALVE The pulmonary valve is normal in structure. There is no pulmonic valvular regurgitation. There is no pulmonic valvular stenosis. GREAT VESSELS Moderate Atherosclerosis of Thoracic and ascending Aorta noted <Conclusion> Left ventricle systolic function is normal. The Ejection Fraction is 60-65%. The aortic valve is mildly to moderately sclerotic. Mitral regurgitation is moderate. Moderate Atherosclerosis of Thoracic and ascending Aorta noted No evidence of Endocarditis seen
== END 2017-06-15 10:59 | disposition home or self-care (01) | DRG 308 ==
LOC: C.ER 14:08 → C.9E 17:35 → C.6T 18:22
PROVIDERS: ADMIT Internal Medicine Nephrology; ATTEND Internal Medicine Nephrology
PROC: B246ZZ4 Ultrasonography of Right and Left Heart, Transesophageal (ICD-10-PCS; principal; 2017-06-13)
DX: I48.91 Unspecified atrial fibrillation (principal); A41.51 Sepsis due to Escherichia coli [E. coli]; N39.0 Urinary tract infection, site not specified; I10 Essential (primary) hypertension; Z16.12 Extended spectrum beta lactamase (ESBL) resistance; I34.0 Nonrheumatic mitral (valve) insufficiency